=== PATIENT | female | born 1950 | race Caucasian/White ===

== ENCOUNTER → 2019-08-13 09:35 | Outpatient (BNVA) | payer MEDICAID, SELFPAY | PROVIDERS: Family Provider Family Medicine; PCP Family Medicine; Visit Provider Anesthesiology | DX: G89.29 Other chronic pain (principal); M51.36 Other intervertebral disc degeneration, lumbar region; M54.16 Radiculopathy, lumbar region; M46.96 Unspecified inflammatory spondylopathy, lumbar region; M54.2 Cervicalgia; M54.10 Radiculopathy, site unspecified; M53.3 Sacrococcygeal disorders, not elsewhere classified; M25.569 Pain in unspecified knee; M25.512 Pain in left shoulder; M79.651 Pain in right thigh; M79.652 Pain in left thigh | CPT/HCPCS: 99214 ==

== ENCOUNTER → 2019-10-09 10:34 | Outpatient (BNVA) | payer MEDICAID, SELFPAY | PROVIDERS: Family Provider Family Medicine; PCP Family Medicine; Visit Provider Nurse Practitioner | DX: G89.29 Other chronic pain (principal); M51.36 Other intervertebral disc degeneration, lumbar region; M79.651 Pain in right thigh; M79.652 Pain in left thigh; M25.512 Pain in left shoulder; M54.2 Cervicalgia; M25.561 Pain in right knee; M25.562 Pain in left knee; Z79.891 Long term (current) use of opiate analgesic | CPT/HCPCS: 99214 ==

== ENCOUNTER → 2020-01-23 12:45 | Outpatient (BNVA) | payer MEDICAID, SELFPAY | PROVIDERS: Family Provider Family Medicine; PCP Family Medicine; Visit Provider Nurse Practitioner | DX: G89.29 Other chronic pain (principal); M51.36 Other intervertebral disc degeneration, lumbar region; M54.16 Radiculopathy, lumbar region; M54.2 Cervicalgia; M25.512 Pain in left shoulder; Z79.891 Long term (current) use of opiate analgesic | CPT/HCPCS: 99213; 99214 ==

== ENCOUNTER 2020-01-23 14:16 | Outpatient (CLI) | payer MEDICAID, SELFPAY ==
--- NOTE | 2020-01-23 14:22 | XRR_ITS ---
PROCEDURE INFORMATION: Exam: XR Left Shoulder Exam date and time: 01/23/2020 3:15 PM Age: 69 years old Clinical indication: Patient HX: C/O left shoulder pain. No trauma; Additional info: Pain left shoulder TECHNIQUE: Imaging protocol: XR Left shoulder. Views: 2 or more views. COMPARISON: No relevant prior studies available. FINDINGS: Bones/joints: There are mild to moderate degenerative changes of the glenohumeral joint and moderate degenerative changes of the acromioclavicular joint. There is no acute fracture or dislocation. The acromioclavicular joint alignment is appropriate. The subacromial joint space is well-preserved. The glenohumeral joint is unremarkable. The visualized ribs are intact. Lungs: The visualized lung apex is clear. Soft tissues: No calcific tendinopathy. XR/XR shoulder LT min 2V* [id number] IMPRESSION: No acute bony abnormality. Degenerative changes are noted.
== END 2020-01-23 14:17 | disposition home or self-care (01) ==
LOC: RAD 14:18
PROVIDERS: PCP Family Medicine; Visit Provider Nurse Practitioner
DX: M25.512 Pain in left shoulder (principal)
CPT/HCPCS: 73030

== ENCOUNTER 2020-01-27 10:30 | Outpatient (CLI) | payer MEDICAID, SELFPAY ==
--- NOTE | 2020-01-27 10:45 | MR_ITS ---
WS: [id number] MRI LEFT SHOULDER NONCONTRAST TECHNIQUE: Sagittal T2, coronal T1, T2 and proton density imaging. Axial gradient PDE imaging. CLINICAL INFORMATION: SHOULDER PAIN COMPARISON: None. FINDINGS: Moderate hypertrophic changes AC joint. Moderate downsloping acromion. Slight subacromial spurring. N arrowing of the subacromial space. Tendinopathy in the distal supraspinatus with chronic thinning. Ti ny undersurface tear at the insertion. Normal infraspinatus. Normal teres minor and subscapularis. Advanced degenerative narrowing glenohumeral joint. Glenoid labrum appears grossly intact with degene rative fraying. Small amount of subchondral cystic change involving the glenoid. Tiny atrophic biceps tendon in the bicipital groove. Chronic thinning of the subscapularis tendon which appears intact. A trophic intra-articular biceps tendon. MR/MR shoulder LT wo con* [id number] IMPRESSION: 1. Moderate hypertrophic changes AC joint with moderate downsloping of the acr omion. Narrowing of the subacromial space. 2. Tendinopathy involving the distal supraspinatus with a small undersurface t ear at the insertion. 3. Rotator cuff is otherwise intact. 4. Chronic atrophy of the intra-articular biceps tendon and the biceps tendon in the bicipital groove due to chronic tear. 5. Glenoid labrum appears grossly intact. 6. Advanced degenerative narrowing at the glenohumeral joint with chondromalac ia.
== END 2020-01-27 10:31 | disposition home or self-care (01) ==
LOC: RADWPI 10:34
PROVIDERS: Family Provider Family Medicine; PCP Family Medicine; Visit Provider Nurse Practitioner
DX: M75.102 Unspecified rotator cuff tear or rupture of left shoulder, not specified as traumatic (principal); X58.XXXA Exposure to other specified factors, initial encounter; M94.212 Chondromalacia, left shoulder
CPT/HCPCS: 73221

== ENCOUNTER → 2020-04-03 08:34 | Outpatient (BNVA) | payer MEDICAID, SELFPAY | PROVIDERS: Family Provider Family Medicine; PCP Family Medicine; Visit Provider Nurse Practitioner | DX: G89.29 Other chronic pain (principal); M51.36 Other intervertebral disc degeneration, lumbar region; M53.3 Sacrococcygeal disorders, not elsewhere classified; M19.012 Primary osteoarthritis, left shoulder; M25.569 Pain in unspecified knee; M19.021 Primary osteoarthritis, right elbow; Z79.891 Long term (current) use of opiate analgesic | CPT/HCPCS: 99213; 99214 ==

== ENCOUNTER → 2020-06-05 10:29 | Outpatient (BNVA) | payer MEDICAID, SELFPAY | PROVIDERS: Family Provider Family Medicine; PCP Family Medicine; Visit Provider Anesthesiology | DX: G89.29 Other chronic pain (principal); M51.36 Other intervertebral disc degeneration, lumbar region; M54.16 Radiculopathy, lumbar region; M46.96 Unspecified inflammatory spondylopathy, lumbar region; M53.3 Sacrococcygeal disorders, not elsewhere classified; M54.2 Cervicalgia; M25.512 Pain in left shoulder; Z79.891 Long term (current) use of opiate analgesic | CPT/HCPCS: 99214 ==

== ENCOUNTER → 2020-08-12 09:57 | Outpatient (BNVA) | payer MEDICAID, SELFPAY | PROVIDERS: Family Provider Family Medicine; PCP Family Medicine; Visit Provider Nurse Practitioner | DX: G89.29 Other chronic pain (principal); M51.36 Other intervertebral disc degeneration, lumbar region; M54.16 Radiculopathy, lumbar region; M46.96 Unspecified inflammatory spondylopathy, lumbar region; M54.2 Cervicalgia; M25.512 Pain in left shoulder; M53.3 Sacrococcygeal disorders, not elsewhere classified; M25.569 Pain in unspecified knee; Z79.891 Long term (current) use of opiate analgesic | CPT/HCPCS: 99213 ==

== ENCOUNTER → 2020-10-07 10:35 | Outpatient (BNVA) | payer MEDICAID, SELFPAY | PROVIDERS: Family Provider Family Medicine; PCP Family Medicine; Visit Provider Nurse Practitioner | DX: M17.12 Unilateral primary osteoarthritis, left knee (principal); M51.36 Other intervertebral disc degeneration, lumbar region; M53.3 Sacrococcygeal disorders, not elsewhere classified; M54.10 Radiculopathy, site unspecified; M46.96 Unspecified inflammatory spondylopathy, lumbar region; M19.012 Primary osteoarthritis, left shoulder; Z79.891 Long term (current) use of opiate analgesic | CPT/HCPCS: 99212; 99214 ==

== ENCOUNTER → 2020-12-10 11:04 | Outpatient (BNVA) | payer MEDICAID, SELFPAY | PROVIDERS: Family Provider Family Medicine; PCP Family Medicine; Visit Provider Nurse Practitioner | DX: G89.29 Other chronic pain (principal); M51.36 Other intervertebral disc degeneration, lumbar region; M54.16 Radiculopathy, lumbar region; M46.96 Unspecified inflammatory spondylopathy, lumbar region; M54.9 Dorsalgia, unspecified; M54.2 Cervicalgia; M17.12 Unilateral primary osteoarthritis, left knee; M19.021 Primary osteoarthritis, right elbow; M19.012 Primary osteoarthritis, left shoulder; M53.3 Sacrococcygeal disorders, not elsewhere classified; M79.7 Fibromyalgia; Z79.891 Long term (current) use of opiate analgesic | CPT/HCPCS: 99213 ==

== ENCOUNTER → 2021-02-17 11:20 | Outpatient (BNVA) | payer MEDICAID, SELFPAY | PROVIDERS: Family Provider Family Medicine; PCP Family Medicine; Visit Provider Anesthesiology | DX: G89.29 Other chronic pain (principal); M51.36 Other intervertebral disc degeneration, lumbar region; M46.96 Unspecified inflammatory spondylopathy, lumbar region; M54.16 Radiculopathy, lumbar region; M19.012 Primary osteoarthritis, left shoulder; Z79.891 Long term (current) use of opiate analgesic; Z87.891 Personal history of nicotine dependence | CPT/HCPCS: 99214 ==

== ENCOUNTER → 2021-04-16 07:56 | Outpatient (BNVA) | payer MEDICAID, SELFPAY | PROVIDERS: Family Provider Family Medicine; PCP Family Medicine; Visit Provider Anesthesiology | DX: G89.29 Other chronic pain (principal); M51.36 Other intervertebral disc degeneration, lumbar region; M46.96 Unspecified inflammatory spondylopathy, lumbar region; M54.16 Radiculopathy, lumbar region; M54.2 Cervicalgia; M25.512 Pain in left shoulder; Z79.891 Long term (current) use of opiate analgesic | CPT/HCPCS: 99214 ==

== ENCOUNTER → 2021-06-18 08:32 | Outpatient (BNVA) | payer MEDICAID, SELFPAY | PROVIDERS: Family Provider Family Medicine; PCP Family Medicine; Visit Provider Anesthesiology | DX: G89.29 Other chronic pain (principal); M51.36 Other intervertebral disc degeneration, lumbar region; M54.16 Radiculopathy, lumbar region; M46.96 Unspecified inflammatory spondylopathy, lumbar region; M54.2 Cervicalgia; M19.012 Primary osteoarthritis, left shoulder; M25.569 Pain in unspecified knee; M79.7 Fibromyalgia; Z79.1 Long term (current) use of non-steroidal anti-inflammatories (NSAID); Z79.891 Long term (current) use of opiate analgesic | CPT/HCPCS: 99214 ==

== ENCOUNTER → 2021-07-21 14:09 | Outpatient (BNVA) | payer MEDICAID, SELFPAY | PROVIDERS: Family Provider Family Medicine; PCP Family Medicine; Referring Provider Family Medicine; Visit Provider Internal Medicine | DX: E03.9 Hypothyroidism, unspecified (principal); E04.1 Nontoxic single thyroid nodule; Z90.09 Acquired absence of other part of head and neck; Z87.891 Personal history of nicotine dependence | CPT/HCPCS: 99204 ==

== ENCOUNTER → 2021-08-19 08:41 | Outpatient (BNVA) | payer MEDICAID, SELFPAY | PROVIDERS: Family Provider Family Medicine; PCP Family Medicine; Visit Provider Anesthesiology | DX: M51.36 Other intervertebral disc degeneration, lumbar region (principal); M25.512 Pain in left shoulder; M54.2 Cervicalgia; Z87.891 Personal history of nicotine dependence; Z79.891 Long term (current) use of opiate analgesic | CPT/HCPCS: 99214 ==

== ENCOUNTER → 2022-03-23 12:55 | Outpatient (BNVA) | payer MEDICAID, SELFPAY | PROVIDERS: Family Provider Family Medicine; PCP Family Medicine; Visit Provider Internal Medicine | DX: E03.9 Hypothyroidism, unspecified (principal); E04.1 Nontoxic single thyroid nodule; Z90.09 Acquired absence of other part of head and neck; M25.50 Pain in unspecified joint | CPT/HCPCS: 99214 ==

== ENCOUNTER → 2023-03-23 08:44 | Outpatient (BNVA) | payer MEDICARE, MEDICAID, SELFPAY | PROVIDERS: Family Provider Family Medicine; PCP Family Medicine; Visit Provider Internal Medicine | DX: E03.9 Hypothyroidism, unspecified (principal); E04.1 Nontoxic single thyroid nodule; Z90.09 Acquired absence of other part of head and neck; Z79.890 Hormone replacement therapy | CPT/HCPCS: 36415; 84439; 99214 ==

== ENCOUNTER 2023-06-21 10:39 | Outpatient (CLI) | payer MEDICARE, MEDICAID, SELFPAY ==
--- NOTE | 2023-06-21 10:52 | USCV_ITS ---
Gal Olesya Age: 72 Gender: F : 1950 Exam Date: 06/21/2023 11:08 Ordering Phys: Olvin Rawls XX Technologist: MITESH Exam Location: [facility] [place] Indication: EDEMA BP: 161 / 94 HR: 73 Rhythm: Sinus Technical Quality: Adequate MEASUREMENTS (Male / Female) Normal Values 2D ECHO LVOT Diameter 2.0 cm LV Ejection Fraction MOD 2C 64.1 % LV Ejection Fraction 2C AL 67.3 % LA Diameter 3.2 cm LA Width 4.1 cm LA Height 4.4 cm RA Width 2.9 cm RA Height 4.8 cm Aorta at Sinotubular Diameter 2.4 cm M-MODE Aortic Annulus Diameter 3.3 cm LA Ao Ratio MM 0.9 MV E Point Septal Separation 0.6 cm DOPPLER AV Peak Velocity 136.0 cm/s LVOT Peak Velocity 97.0 cm/s AV Area Cont Eq vti 2.2 cm squared AV Area Cont Eq pk 2.3 cm squared MV Peak Velocity 119.0 cm/s MV Area PHT 2.5 cm squared Mitral E to A Ratio 0.6 MV E' Velocity 32.5 cm/s Mitral E to MV E' Ratio 10.2 Mitral E to LV E' Lateral Ratio 10.9 Mitral E to LV E' Septal Ratio 9.7 TR Peak Velocity 189.4 cm/s TR Peak Gradient 14.3 mmHg TR Mean Velocity 163.7 cm/s TR Mean Gradient 11.0 mmHg TR Velocity Time Integral 55.3 cm TV Peak E Velocity 63.0 cm/s Right Atrial Pressure 3.0 mmHg Pulmonary Artery Systolic Pressu 17.3 mmHg PV Peak Velocity 116.0 cm/s RV Acceleration Time 0.1 s RV Ejection Time 0.3 s RV AcT/ET 0.5 FINDINGS Left Ventricle Normal left ventricular size, systolic function and wall thickness, with no regional wall motion abnormalities. Left ventricular ejection fraction is estimated at 65 %. Right Ventricle Normal right ventricular size and systolic function. Right Atrium Normal right atrial size. Left Atrium Normal left atrial size. Mitral Valve Structurally normal mitral valve. Trace mitral valve regurgitation. Aortic Valve Structurally normal trileaflet aortic valve. Trace aortic valve regurgitation. Tricuspid Valve Structurally normal tricuspid valve. Trace tricuspid valve regurgitation. Pulmonic Valve Structurally normal pulmonic valve. Mild pulmonary valve regurgitation. Pericardium No pericardial effusion. Aorta Normal size aortic root and proximal ascending aorta. IVC Normal IVC dimension with >50% respiratory change of the inferior vena cava. CONCLUSIONS Normal left ventricle function. No LVH LVEF estimated normal at 65%. Normal chamber sizes. No significant valvular abnormality noted. Normal right heart and pulmonary pressures. Tavo Bourgeois MD (Electronically Signed) Final Date: 21 June 2023 12:15 S
== END 2023-06-21 10:40 | disposition home or self-care (01) ==
LOC: RAD 10:39
PROVIDERS: Family Provider Family Medicine; PCP Family Medicine; Visit Provider Family Medicine
DX: R60.0 Localized edema (principal); R79.89 Other specified abnormal findings of blood chemistry
CPT/HCPCS: 93306

== ENCOUNTER → 2024-05-09 13:45 | Outpatient (BNVA) | payer MEDICARE, MEDICAID, SELFPAY | PROVIDERS: Family Provider Family Medicine; PCP Family Medicine; Visit Provider Orthopaedic Surgery | DX: M54.16 Radiculopathy, lumbar region (principal); G89.29 Other chronic pain | CPT/HCPCS: 72110; 99204 ==

== ENCOUNTER 2024-06-14 08:25 | Outpatient (CLI) | payer MEDICARE, MEDICAID, SELFPAY ==
--- NOTE | 2024-06-14 08:45 | NM_ITS ---
WS: [id number] NUCLEAR MEDICINE WHOLE BODY BONE SCAN HISTORY: lumbar pain COMPARISON: Lumbar spine radiograph 05/09/2024, knee radiographs 11/18/2015 TECHNIQUE: The patient was injected with 26.4 mCi of Technetium 99m HDP and serial whole-body scintig zakiya have been performed with anterior and posterior images. Mild thoracolumbar scoliosis. No lumbar fracture is identified. Very slight increased uptake at L5. T here is normal uptake within the remaining vertebral bodies. Mild bilateral increased uptake at the S I joints but not extending through the sacrum. Probably due to sacroiliitis. No evidence for sacral i nsufficiency fracture. Deformity at the knees and ankles with focal areas of marked increased uptake and intermediate uptake . Prior knee radiographs were reviewed. These findings are all related to advanced joint space narrow ing and osteoarthritis. Similar findings in the feet. No metastatic lesions in the ribs. Mild AC join t arthritis. NM/NM bone scan whole body* [id number] IMPRESSION: 1. Bone scan imaging is negative for acute thoracolumbar fracture. There is ve ry subtle uptake within the L5 vertebral body which is probably arthritic. 2. Abnormal uptake with deformity of the knees and feet from arthritis.
== END 2024-06-14 08:26 | disposition home or self-care (01) ==
LOC: RAD 08:26
PROVIDERS: PCP Family Medicine; Visit Provider Orthopaedic Surgery
DX: M54.16 Radiculopathy, lumbar region (principal); M46.96 Unspecified inflammatory spondylopathy, lumbar region; M17.0 Bilateral primary osteoarthritis of knee; M19.071 Primary osteoarthritis, right ankle and foot
CPT/HCPCS: 78306; A9561

== ENCOUNTER 2024-06-17 08:53 | Outpatient (CLI) | payer MEDICARE, MEDICAID, SELFPAY ==
--- NOTE | 2024-06-17 08:57 | CT_ITS ---
WS: [id number] CT LUMBAR SPINE MYELOGRAM TECHNIQUE: CT of the lumbar spine with coronal and sagittal reformatted images after intrathecal adm inistration of contrast. CLINICAL INFORMATION: lumbar pain COMPARISON: MRI 2014 DLP: 1139.[address] scans at [facility] use at least one of these dose optimization techniques: automated e xposure control; mA and/or kV adjustment per patient size (includes targeted exams where dose is matc hed to clinical indication); or iterative reconstruction. FINDINGS Some subdural dissection of contrast at the injection level L2-3. Good opacification of the thecal sa c distally. Grade 1 anterolisthesis L3 on L4 and L4 on L5. Disc space narrowing worse at L4-5. These findings hav e progressed compared to 2014. Vacuum disc phenomenon L4-5. L1-L2: Mild annular bulging. Spinal canal is patent. Moderate facet arthropathy with ligamentum flavu m hypertrophy. Mild LEFT foraminal narrowing. L2-L3: Mild annular bulging. Spinal canal is patent. Eccentric disc bulging with mild bilateral michael inal narrowing. Moderate facet arthropathy with ligamentum flavum hypertrophy. L3-L4: Grade 1 anterolisthesis. Mild central canal stenosis. Advanced facet arthropathy ligamentum fl avum hypertrophy. LEFT eccentric disc bulging slightly contacts the exiting LEFT L3 nerve root. RIGHT foramen is patent. Narrowing of the LEFT subarticular recess. L4-L5: Grade 1 anterolisthesis with vacuum disc phenomenon. Central disc osteophyte complex results i n moderate central canal stenosis. Narrowing of the subarticular recess bilaterally. Mild RIGHT and n o significant LEFT foraminal narrowing. L5-S1: Mild annular bulging. Moderate facet arthropathy. Spinal canal and foramen are patent. Visualized pelvic bony structures: Normal. Paravertebral soft tissues: Normal. Normal adrenal glands. CT/CT lumbar spine wo/w con [id number] IMPRESSION: 1. Lumbar scoliosis convex RIGHT. 2. Grade 1 anterolisthesis L4 on L5 with central disc osteophyte complex and m oderate central canal stenosis. Impingement on the traversing L5 nerve roots bi laterally. 3. Mild RIGHT L4-5 foraminal narrowing. 4. Mild central canal stenosis L3-4 with grade 1 anterolisthesis and narrowing of the LEFT subarticular recess. 5. LEFT eccentric disc bulging slightly contacts the exiting L3 nerve root. 6. Moderate to advanced arthropathy L3-L5 with ligamentum flavum hypertrophy.
--- NOTE | 2024-06-17 09:30 | IR_ITS ---
WS: [id number] MYELOGRAM LUMBAR SPINE Fluoroscopic guided lumbar myelogram CLINICAL INFORMATION: back pain COMPARISON: None. TECHNIQUE: The procedure, including risks, benefits, and complications, were discussed with the patie nt who agreed to proceed. A timeout was performed to confirm correct patient, procedure, and site. Using sterile technique, the patient was prepped and draped in the usual sterile fashion. After admin istration of local anesthesia using 1% preservative-free lidocaine and using fluoroscopic guidance, a 22-gauge spinal needle was advanced into the subarachnoid space at the L2-3 level. Subsequently 13 c c of Omnipaque 240 was administered into the thecal sac. The needle was removed and hemostasis was ac hieved. Spot fluoroscopic images were obtained. FLUOROSCOPIC TIME: 4min [id number] # of spot films: [address] myelogram report for anatomic detail. IR/IR myelogram sp lumbar [id number] IMPRESSION: Uncomplicated lumbar myelogram
[2024-06-17] MEDS: iohexol 240 mg/mL 50 mL Btl INTRATHECA (11:45)
== END 2024-06-17 08:54 | disposition home or self-care (01) ==
LOC: RAD 08:54
PROVIDERS: PCP Family Medicine; Visit Provider Orthopaedic Surgery
DX: M54.16 Radiculopathy, lumbar region (principal); M43.16 Spondylolisthesis, lumbar region; M47.896 Other spondylosis, lumbar region; M99.63 Osseous and subluxation stenosis of intervertebral foramina of lumbar region; M25.78 Osteophyte, vertebrae
CPT/HCPCS: 62304; 72133

== ENCOUNTER → 2024-07-02 10:03 | Outpatient (BNVA) | payer MEDICARE, MEDICAID, SELFPAY | PROVIDERS: PCP Family Medicine; Visit Provider Orthopaedic Surgery | DX: M54.16 Radiculopathy, lumbar region (principal); G89.29 Other chronic pain | CPT/HCPCS: 99213 ==

== ENCOUNTER → 2024-10-29 14:02 | Outpatient (BNVA) | payer MEDICARE, MEDICAID, SELFPAY | PROVIDERS: PCP Family Medicine; Visit Provider Orthopaedic Surgery | DX: M54.16 Radiculopathy, lumbar region (principal); G89.29 Other chronic pain | CPT/HCPCS: 99213 ==

== ENCOUNTER → 2025-01-30 10:13 | Outpatient (BNVA) | payer MEDICARE, MEDICAID, SELFPAY | PROVIDERS: PCP Family Medicine; Visit Provider Orthopaedic Surgery | DX: M43.16 Spondylolisthesis, lumbar region (principal) | CPT/HCPCS: 99213 ==

== ENCOUNTER → 2025-05-12 13:10 | Outpatient (BNVA) | payer MEDICARE, MEDICAID, SELFPAY | PROVIDERS: PCP Family Medicine; Visit Provider Internal Medicine Endocrinology, Diabetes & Metabolism | DX: E89.0 Postprocedural hypothyroidism (principal); E04.1 Nontoxic single thyroid nodule; Z90.89 Acquired absence of other organs; Z98.890 Other specified postprocedural states | CPT/HCPCS: 36415; 84439; 84443; 99214 ==